=== PATIENT | male | born 1970 | race African-American/Black ===

== ENCOUNTER 2023-09-18 13:27 | Emergency (ER) | payer SELFPAY ==
[~2023-09-18] VITALS: Ht 188 cm; Wt 91.0 kg
[2023-09-18] MEDS ORDERED: MIDAZOLAM HCL 2 MG/2 ML VIAL IV ONE (13:45)
[2023-09-18] MEDS ORDERED: SODIUM CHLORIDE 0.9% 1,000 ML IV ONE (13:45)
[2023-09-18] MEDS ORDERED: FOLIC ACID 1 MG, THIAMINE HCL 100 MG, MVI, ADULT NO.1 10 ML in DEXTROSE 5% WATER 1,000 ML IV ONE ×4 (13:45)
[2023-09-18] MEDS ORDERED: LEVETIRACETAM 500MG PREMIX 100 ML IV ONE (13:45)
[2023-09-18 14:19] VITALS: O2SAT 97
[2023-09-18 15:32] LABS: BASOPHILS % 0.6 % (0.0-2.0); EOSINOPHILS % 0.1 % (0.0-5.0); HEMATOCRIT. 37.7 % (42.0-52.0); HEMOGLOBIN. 12.6 g/dL (14.0-18.0); LYMPHOCYTES % 8.1 % (20.0-50.0); MEAN CORPUSCULAR HGB CONC 33.6 g/dL (31.0-37.0); MEAN CORPUSCULAR VOLUME 113.3 fL (80.0-94.0); MEAN PLATELET VOLUME 8.6 fl (7.4-10.4); MONOCYTES % 8.6 % (2.0-8.0); NEUTROPHILS % 82.6 % (40.0-76.0); PLATELET 143 x1000/uL (130-400); RED BLOOD CELL COUNT 3.33 mill/uL (4.7-6.1); RED CELL DISTRIBUTION WIDTH 14.5 % (11.6-14.6); WHITE BLOOD COUNT 5.7 x1000/uL (4.5-11.0)
[2023-09-18 15:38] LABS: ADD RBC MORPHOLOGY YES; DIFFERENTIAL COMMENT 1
[2023-09-18 15:58] LABS: ALANINE AMINOTRANSFERASE 41 IU/L (10-49); ALBUMIN 3.7 g/dL (3.2-4.8); ASPARTATE AMINOTRANSFERASE 106 IU/L (<34); BILIRUBIN TOTAL 1.5 mg/dL (0.1-1.0); CARBON DIOXIDE 22 mEq/L (21-32); CHLORIDE 104 mEq/L (98-107); CREATININE 0.9 mg/dL (0.6-1.3); GLUCOSE 108 mg/dL (70-105); PROTEIN TOTAL 6.6 g/dL (6.0-8.3); SODIUM 140 mEq/L (136-145); TROPONIN I HIGH SENSITIVITY 9 ng/L (3.0-53); UREA NITROGEN BLOOD 11 mg/dL (9-23)
[2023-09-18 16:00] LABS: ETHANOL BLOOD < 10 mg/dL (<10)
[2023-09-18 16:01] LABS: POTASSIUM 2.6 mEq/L (3.5-5.1)
[2023-09-18] MEDS ORDERED: POTASSIUM CHLORIDE 20MEQ TABLET SR PO ONE (16:15)
[2023-09-18] MEDS ORDERED: MAGNESIUM 2 G PREMIX 50 ML IV ONE (16:15)
[2023-09-18] MEDS ORDERED: KCL 20MEQ/100ML PREMIX 100 ML IV ONE (16:15)
[2023-09-18 16:23] LABS: PLATELET ESTIMATE NORMAL
[2023-09-18] MEDS ORDERED: NITROGLYCERIN 0.4MG TABLET SL SL PRN (16:30)
[2023-09-18] MEDS ORDERED: ONDANSETRON HCL 4MG/2ML INJ IV PRN (16:30)
[2023-09-18] MEDS ORDERED: GUAIFENESIN 200MG/10ML SUGAR FREE UDC PO PRN (16:30)
[2023-09-18] MEDS ORDERED: DOCUSATE SODIUM 100MG CAPSULE PO PRN (16:30)
[2023-09-18] MEDS ORDERED: MAGNESIUM/ALUMINUM HYDROXIDE/SIMETHICONE 30ML UDC PO PRN (16:30)
[2023-09-18] MEDS ORDERED: POTASSIUM CHLORIDE 20MEQ TABLET SR PO NR (16:30)
[2023-09-18] MEDS ORDERED: ACETAMINOPHEN 325MG TABLET PO PRN ×2 (16:30)
[2023-09-18] MEDS ORDERED: IPRATROPIUM/ALBUTEROL 0.5-3(2.5)MG/3ML NEB NEB PRN (16:30)
[2023-09-18] MEDS ORDERED: CLONIDINE 0.1MG TABLET PO PRN (16:30)
[2023-09-18] MEDS ORDERED: KETOROLAC 15MG/ML VIAL IV PRN (16:30)
[2023-09-18] MEDS ORDERED: KCL 20MEQ/100ML PREMIX 100 ML IV SCH (17:00)
[2023-09-18] MEDS ORDERED: ENOXAPARIN 40MG/0.4ML SYR SUBCUT SCH (17:00)
[2023-09-18] MEDS ORDERED: LORAZEPAM 2MG/ML INJ IV PRN (17:00)
[2023-09-18 17:58] VITALS: BP 118/87; PULSE 89; RESP 22; TEMP 98.3
[2023-09-18] MEDS ORDERED: MAGNESIUM 4 G PREMIX 100 ML IV NR (18:00)
[2023-09-18 21:35] LABS: FOLIC ACID (FOLATE) SERUM > 20.00 ng/mL (>5.38); VITAMIN B12 SERUM 1010 pg/mL (211-911)
[2023-09-18 21:36] LABS: IRON 100 ug/dL (65-175); T4 FREE 1.39 ng/dL (0.89-1.76); THYROID STIMULATING HORMONE 1.84 uIU/mL (0.55-4.78); TOTAL IRON BINDING CAPACITY 162 ug/dl (250-425)
[2023-09-18] MEDS ORDERED: CHLORDIAZEPOXIDE 25MG CAPSULE PO SCH (22:00)
[2023-09-19] MEDS ORDERED: PANTOPRAZOLE SODIUM 40 MG/VIAL IV SCH (09:00)
[2023-09-19] MEDS ORDERED: MVI, ADULT NO.1 10 ML, FOLIC ACID 1 MG, THIAMINE HCL 100 MG in SODIUM CHLORIDE 0.9% 1,0... IV SCH ×4 (11:00)
[2023-09-20] MEDS ORDERED: THIAMINE HCL 100MG TABLET PO SCH (09:00)
[2023-09-20] MEDS ORDERED: FOLIC ACID 1MG TABLET PO SCH (09:00)
== END 2023-09-18 19:48 | disposition left against medical advice (07) ==
LOC: ER 13:27 → CANBEDREQ 09-19 12:08
DX: R56.9 Unspecified convulsions (principal); E87.6 Hypokalemia; E83.42 Hypomagnesemia; F10.239 Alcohol dependence with withdrawal, unspecified; Y90.0 Blood alcohol level of less than 20 mg/100 ml
CPT/HCPCS: 80053; 80320; 82607; 82746; 83036; 84439; 83540; 83550; 83735; 84443; 85025; 84484; 36415; 71045; 70450; 93970; 93005; 96367; 96365; 96366; 96372; 96375; 99285; J1953; J1650; J3490 ×2; J3475; J2250; J3480; J3411; J7070; J7030; Z7610 ×2; G0480